=== PATIENT | female | born 1990 | race Caucasian/White ===

== ENCOUNTER 2024-04-13 11:54 | Emergency (ER) | payer OTHER, SELFPAY ==
[2024-04-13 12:02] VITALS: BP 134/93
--- NOTE | 2024-04-13 13:11 | ED.MUSCINJ ---
HPI-Injury
General
Chief Complaint: Musculo-Skeletal Complaint
Source: patient
Exam Limitations: none
Time Seen by Provider: 04/13/24 13:01
Nursing documentation reviewed up to this point in time: agreed with
Travel History
Have you had any contact with someone who has COVID-19?: No
Do you have any symptoms of coronavirus? Fever > 100 degrees, chills, cough, shortness of breath, sore throat, loss of taste or smell, muscle aches, or headache?: No
History of Present Illness-Injury
Is this injury a work related problem?: No
Is pt an associate of [facility]?: No
Initial Injury comments:
Patient to ED with complaint of right knee pain. Pain started 1 year ago after going to gym. States it resovled for approx 6 mos and then returned. States she went to PCP and MRI was ordered but she can not get an appointment for 1 mos. Brought
self to ED for eval. Denies fever/chills, skin rash. No redness to knee
Past History
Past History
ED Past Medical History: None
Review of Systems
Review of Systems
Allergies reviewed?: Yes
All Other Systems: ROS reviewed and negative except as documented in HPI and ROS
Constitutional: Reports no symptoms
Musculoskeletal: Reports joint pain (pain to right knee - medial)
Skin: Reports no symptoms
Neurological: Reports no symptoms
Psychiatric: Reports no symptoms
Musculoskeletal Injury Exam
Musculoskeletal Injury Exam
Right Medial Knee:
Pain with Movement?: Mild
Tender to palpation?: Mild
Soft tissue swelling?: Mild
External deformity and angulation?: None
Joint effusion?: Mild
Contusion?: None
Hematoma-local bleeding into tissue?: None
Strain- Sprain- Tear (Connective tissue injury)?: Moderate
Crepitus with movement?: No
Joint instability?: No
Malalignment/deformity?: No
Range of motion: Limited (limited bending. Pain with ambulation. No ligament laxity)
Distal skin color and temperature: normal-warm & good color
Capillary Refill: normal
Normal distal neurovascular exam?: Yes
Phy Exam
General Physical Exam
General Presentation: well appearing and no apparent distress
General age: appears stated age
General Skin: warm and dry
General Habitus: normal
Musculoskeletal Exam
Musculoskeletal Exam: neuro vasc intact
Skin Exam
Skin Exam: normal color, warm/dry and no rash
Psychiatric Exam
Psychiatric Exam: normal mood/affect
Injury Course
Orders/Labs/Results
Orders:
Orders
04/13/24 13:10
Knee, Right 4 or More Views [CR Knee- Right 4 Or More View*] Urgent
Comment:
Reason For Exam: pain
04/13/24 13:54
Knee Immobilizer Right-Treatme ONCE
*Radiology
Radiology exam reviewed: radiology read reviewed
*Pulse Oximetry
Patient hypoxic: no
*Critical Care Note
Total Time (30-74mins, 75-104mins- exclusive of procedures): Not Applicable
ED Attending Note
-
Portions of this chart may have been created with voice recognition software.� Occasional wrong word or��sound alike� substitutions may have occurred due to the inherent limitations of voice recognition software.
Discharge Plan
Departure
Patient Disposition: Home (Routine Discharge)
Date of Disposition: 04/13/24
Time of Disposition: 13:49
Patient with high blood pressure during this ER visit?: No
Condition: Good
Covid-19: Not Applicable
Discharge Problem:
Acute knee pain
Instructions: Ibuprofen, Knee Pain (DC), Using Cold for Pain
Referrals:
Zeke Dunlap, DO [Active] - Next open appointment
Interventions
Interventions:
*Risk Screen - Suicide Last Done: 04/13/24 12:02
*Neglect/Abuse Screening Last Done: 04/13/24 12:02
*ED COVID-19 Vaccine History Last Done: 04/13/24 12:02
*Nursing Disposition Last Done: 04/13/24 14:09
ED-Musculoskeletal Assessment Last Done: 04/13/24 14:08
Discharge Date and Time
Discharge Date/Time: 04/13/24 14:14
Print Language: [id number]
== END 2024-04-13 14:14 | disposition home or self-care (01) ==
LOC: EMR 11:54
PROVIDERS: EMERGENCY PHYSICIAN Emergency Medicine; FAMILY PHYSICIAN Internal Medicine Cardiovascular Disease
DX: M25.561 Pain in right knee (principal); M25.461 Effusion, right knee
CPT/HCPCS: 99283; 29505; 73564